=== PATIENT | male | born 1970 | race Caucasian/White ===

== ENCOUNTER → 2017-06-26 | Outpatient (CLI) | payer OTHER ==
[~2017-06-26] MED LIST: WARF10 PO; WARF7.5 PO
== END | disposition home or self-care (01) ==
LOC: LAB SHORT 14:40 → LAB EV 14:40
DX: E11.40 Type 2 diabetes mellitus with diabetic neuropathy, unspecified (principal)
CPT/HCPCS: 87070; 87075; 87077; 87147; 87186; 87205

== ENCOUNTER → 2020-06-29 | Outpatient (CLI) | payer OTHER | END | disposition home or self-care (01) | LOC: PLD 14:53 → LAB SHORT 14:53 | DX: D22.39 Melanocytic nevi of other parts of face (principal) | CPT/HCPCS: 88305 ==

== ENCOUNTER → 2021-11-21 | Outpatient (CLI) | payer OTHER ==
[2021-11-23 10:01] LABS: Stool Occult Bld Immuno 1 Negative (NEGATIVE)
== END | disposition home or self-care (01) ==
LOC: LAB 16:33 → LAB SHORT 16:33
PROVIDERS: Registered Nurse Oncology
DX: I26.99 Other pulmonary embolism without acute cor pulmonale (principal); D68.59 Other primary thrombophilia
CPT/HCPCS: 82274

== ENCOUNTER 2022-11-08 10:32 | Day surgery (SDC) | payer OTHER ==
[~2022-11-08] VITALS: Ht 200.7 cm; Wt 126.5 kg
[2022-11-08] MEDS ORDERED: XARELTO20 MG PO (11:01)
[2022-11-08] MEDS ORDERED: JARDIANCE25 MG PO (11:02)
[2022-11-08] MEDS ORDERED: METF500 PO (11:02)
[2022-11-08] MEDS ORDERED: ATOR20 (11:03)
[2022-11-08] MEDS ORDERED: TRULICITY4.5 MG/0.5 SQ (11:03)
[2022-11-08] MEDS ORDERED: VITAMIN B122500 MC1 PO (11:03)
--- NOTE | 2022-11-08 11:37 | NUR ---
11/08/22 1137 MORENITA SANCHES PRE-OP TEACHING COMPLETED. PT VSS. TALKING WITH NURSE, COOPERATIVE WITH CARE. NO FURTHER QUESTIONS AT THIS TIME.
--- NOTE | 2022-11-08 12:47 | NUR ---
11/08/22 1247 Zulma Grant 2ND TOE LEFT FOOT AND TOP OF FOOT DRY AND INTACT. BOTTOM OF UPPER FOOT WITH SMALL CLOSED SCABBED ULCER. AWARE
[2022-11-08 13:39] VITALS: BP 127/77
--- NOTE | 2022-11-08 13:50 | NUR ---
11/08/22 1350 Dedra Quezada PT DENIED PAIN. PT WAS ABLE TO TOLERATE EATING AND DRINKING WITH NO ISSUES. 600 MG OF IBUPROFEN GIVEN PER ORDERS. DADLAVON, AT BEDSIDE FOR DISCHARGE TEACHING. QUESTIONS ANSWERED. PT EXPRESSED READINESS TO GO HOME.
== END 2022-11-08 14:02 | disposition home or self-care (01) ==
LOC: ORSCSDS 10:32
PROVIDERS: Podiatrist
PROC: 0L8W0ZZ Division of Left Foot Tendon, Open Approach (ICD-10-PCS; principal; 2022-11-08 12:00)
DX: M20.42 Other hammer toe(s) (acquired), left foot (principal); E11.42 Type 2 diabetes mellitus with diabetic polyneuropathy; L97.522 Non-pressure chronic ulcer of other part of left foot with fat layer exposed; E78.5 Hyperlipidemia, unspecified; D68.51 Activated protein C resistance; Z86.718 Personal history of other venous thrombosis and embolism; Z79.01 Long term (current) use of anticoagulants; Z79.84 Long term (current) use of oral hypoglycemic drugs; Z79.899 Other long term (current) drug therapy
CPT/HCPCS: 82947; 93005; 93010; A9270; J0690; J1100; J1885; J2250; J2405; J2704; J2795; J3010; J7120

== ENCOUNTER 2024-06-08 23:14 | Emergency (ER) | payer OTHER ==
[~2024-06-08] VITALS: Ht 198.1 cm; Wt 127.0 kg
[~2024-06-08 23:14] MED LIST changes: +ATOR20; +JARDIANCE25 MG PO; +METF500 PO; +TRULICITY4.5 MG/0.5 SQ; +VITAMIN B122500 MC1 PO; +XARELTO20 MG PO
[2024-06-08 23:28] VITALS: BP 150/85
[2024-06-09] MEDS ORDERED: Acetaminophen 325 MG TABLET PO ONE (00:10)
[2024-06-09 00:24] LABS: Influenza B, PCR NEGATIVE (NEGATIVE); Resp Syncytial Virus, PCR NEGATIVE (NEGATIVE); SARS-Cov-2 (COVID-19) PCR, MMC NEGATIVE (NEGATIVE)
[2024-06-09 01:52] LABS: Influenza A, PCR POSITIVE (NEGATIVE)
== END 2024-06-09 02:26 | disposition home or self-care (01) ==
LOC: ER 23:14
PROVIDERS: Student in an Organized Health Care Education/Training Program
DX: J10.1 Influenza due to other identified influenza virus with other respiratory manifestations (principal); R06.00 Dyspnea, unspecified; Z79.899 Other long term (current) drug therapy; Z79.84 Long term (current) use of oral hypoglycemic drugs
CPT/HCPCS: 0241U; 99283; A9270

== ENCOUNTER 2025-03-31 10:58 | Day surgery (SDC) | payer OTHER ==
[2025-03-31] VITALS (14 sets, daily range): BP systolic 103–158; BP diastolic 59–145
[~2025-03-31] VITALS: Ht 195.6 cm; Wt 118.7 kg
[~2025-03-31 10:58] MED LIST changes: +MOUNJARO2.5 MG/0.5 SQ
--- NOTE | 2025-03-31 11:51 | NUR ---
Ambulatory in Day Surgery. Patient confirms NPO status and agrees with scheduled surgery. Patient states colon prep results clear. Patient States Post-Procedure ride home has been arranged.
[2025-03-31] MEDS ORDERED: Midazolam HCl 1MG / ML 2ML Vial ONE (12:25)
--- NOTE | 2025-03-31 12:42 | NUR ---
03/31/25 1242 Sheri Neely CONFIRMED AND REVIEWED H&P, MEDCICATIONS, ALLERGIES, MEDICAL HISTORY, RESPIRATORY HISTORY, VITAL SIGNS, 3-LEAD EKG, CONSENTS, AND PHYSICIAN ORDERS. PATIENT CONFIRMS NPO STATUS AND AGREES WITH SCHEDULED PROCEDURE. MONITOR INTACT WITH CONTINUOUS PULSE OXIMETRY, CAPNOGRAPHY, 3-LEAD EKG, INTERMITTENT BP. SUPPLEMENTAL O2 TO BE TITRATED THROUGHOUT PROCEDURE TO MAINTAIN O2 SATURATION ABOVE 90%. PATIENT DETERMINED TO BE ASA APPROPRIATE FOR PROPOFOL SEDATION PRIOR TO START OF PROCEDURE BY DR. SYED MALLAMPATI CLASS 2 AIRWAY: COMPLETE VISUALIZATION OF THE UVULA.
--- NOTE | 2025-03-31 12:51 | NUR ---
Patient States Post-Procedure ride home has been arranged. Discharged via wheelchair to private car for ride home. Discharge instructions reviewed with patient. Patient verbalizes understanding. Copy given to patient to take home.
== END 2025-03-31 23:00 | disposition home or self-care (01) ==
LOC: ORSCMMR 10:58 → ORD 12:00 → ORSCMMR 23:00
PROVIDERS: Internal Medicine Gastroenterology
PROC: 0DBN8ZX Excision of Sigmoid Colon, Via Natural or Artificial Opening Endoscopic, Diagnostic (ICD-10-PCS; principal; 2025-03-31 12:00)
DX: Z12.11 Encounter for screening for malignant neoplasm of colon (principal); K63.5 Polyp of colon; E11.9 Type 2 diabetes mellitus without complications; D68.51 Activated protein C resistance; E78.00 Pure hypercholesterolemia, unspecified; Z86.711 Personal history of pulmonary embolism; Z79.84 Long term (current) use of oral hypoglycemic drugs; Z79.01 Long term (current) use of anticoagulants; Z79.85 Long-term (current) use of injectable non-insulin antidiabetic drugs; Z79.899 Other long term (current) drug therapy
CPT/HCPCS: 82947; 88305; J2250; J2704; J7120